=== PATIENT | male | born 1940 | race Caucasian/White ===

== ENCOUNTER 2016-08-11 05:38 | Inpatient (IN) | payer OTHER ==
[2016-07-28 10:16] LABS: % IMMATURE GRANULYOCYTES 0.1 % (0.0-1.1); ABSOLUTE IMMATURE GRANULOCYTES 0.01 10^3/uL (0.00-0.10); ADD DIFF? NO; ADD MORPH? NO; ADD SCAN? NO; ATYPICAL LYMPHOCYTE FLAG 0 (0-99); FRAGMENT RBC FLAG 0 (0-99); HEMATOCRIT 43.6 % (40.0-51.0); HEMOGLOBIN 15.1 g/dL (13.7-17.5); LEFT SHIFT FLG 0 (0-99); LIPEMIA HEMOLYSIS FLAG 90 (0-99); MEAN CELL HEMOGLOBIN 29.8 pg (27.9-34.1); MEAN CELL HEMOGLOBIN CONCENTR. 34.6 g/dL (32.4-36.7); MEAN CELL VOLUME 86.2 fL (81.5-99.8); MEAN PLATELET VOLUME 10.8 fL (8.7-11.7); PLATELET CLUMPS FLAG 0 (0-99); PLATELET COUNT 160 10^3/uL (150-400); RED BLOOD CELL COUNT 5.06 10^6/uL (4.40-6.38); RED CELL DISTRIBUTION WIDTH 12.5 % (11.5-15.2)
--- NOTE | 2016-08-02 12:03 | GHP ---
[f rep st] PREOP HISTORY AND PHYSICAL DATE OF ADMISSION: 08/11/2016 PROBLEM: Left knee arthritis. HISTORY OF PRESENT ILLNESS: The patient is a 76-year-old man admitted for a left total knee arthropl asty. He has had progressive degenerative arthritis in the left knee over the past couple of years. He had Supartz injections in 2014, which were quite helpful. He had them again in February 2016, and they did not work. His pain is increasing. He cannot walk without a lot of pain. He is using ibupr ofen every day. The knee is very stiff after prolonged sitting and when he awakens in the morning. He has been doing physical therapy without much benefit. He has failed nonsurgical treatment. He is admitted for a left total knee arthroplasty. PAST MEDICAL HISTORY: He is treated for hypothyroidism and elevated cholesterol. He had pneumonia i n 2010. No history of previous MRSA staph infections. No history of DVT, hepatitis or sleep apnea. CURRENT MEDICATIONS: Singulair 10 mg daily for allergic rhinitis. Zocor 20 mg daily. Synthroid 125 mcg per day. Ibuprofen daily. ALLERGIES: Penicillin caused a rash and diarrhea many years ago. Lorcet, Addison and Vicodin all caus ed dizziness and nausea. He is also allergic to doxycycline, shellfish and clindamycin. He thinks c lindamycin caused C diff. He states that aspirin upsets his stomach. He can tolerate ibuprofen. SOCIAL HISTORY: The patient is . He does not smoke cigarettes or drink alcohol. He is retir ed. FAMILY HISTORY: Positive for heart disease and cancer. PHYSICAL EXAMINATION: GENERAL: He is a tall, thin, healthy-appearing man. VITAL SIGNS: Height 6 f eet 1 inch. Weight 190 pounds. BMI 25.1. EYES: Conjunctivae and sclerae are clear. Pupils are ro und and reactive. MOUTH: Good oral hygiene. No loose teeth. CHEST: Clear. HEART: Regular rhyth m. No murmurs. EXTREMITIES: Pertinent findings limited to his left knee. He has a small effusion. He is tender along the medial joint line. His ligaments are stable. He lacks 5 degrees of full ex tension and flexes to 120 degrees. IMAGING: His films show advanced medial compartment degenerative arthritis. He is jooj-ck-gqqr in t he medial compartment. Peripheral osteophytes are present. He has mild varus alignment. IMPRESSION ON ADMISSION: 1. Left knee advanced medial compartment degenerative arthritis. 2. Treatment for hypothyroidism. 3. Treatment for elevated cholesterol. PLAN: He will undergo a left total knee arthroplasty. The surgery has been described to him, includ ing the risks, complications, expectations and recovery time. I have stressed the importance of post operative physical therapy. I have advised him that a small percentage of people do not get a good r esult with a total knee replacement. I am going to try to use a baby aspirin for DVT prophylaxis. I have asked him to take Pepcid or Taga met along with the aspirin. If he cannot tolerate that, I will have to switch him to Xarelto. He ca n tolerate oxycodone, which I use for postoperative pain control. All his questions have been answer ed, and he consents to surgery. /[id number]/MODL
[2016-08-11] MEDS ORDERED: ROPI/epiNEPH/KETOROLAC JOINT COCKTAIL IU ONE (06:00)
[2016-08-11] MEDS ORDERED: TRANEXAMIC ACID IV ONE (06:00)
[2016-08-11] MEDS ORDERED: FAMOTIDINE 20 MG TAB PO ONE (06:00)
[2016-08-11] MEDS ORDERED: POVIDONE-IODINE 20 ML in SODIUM CL IRRIG SOLUTION 500 ML IRR ONE (06:00)
[2016-08-11] MEDS ORDERED: CEFAZOLIN 2 GM/DEXTR 100 ML IV ONE (06:00)
[2016-08-11] MEDS ORDERED: NS IV ONE (06:00)
[2016-08-11] MEDS ORDERED: CHLORHEXIDINE GLUC HIBICLENS 118 ML BTL TP ONE (06:00)
[2016-08-11] MEDS ORDERED: ACETAMINOPHEN 325 MG TAB PO ONE (06:00)
[2016-08-11] MEDS ORDERED: DEXAMETHASONE 4 MG/ML VIAL IVP ONE (06:00)
[2016-08-11] MEDS ORDERED: SCOPOLAMINE HYDROBROMIDE 1.5 MG PATCH TD ONE (06:00)
[2016-08-11] MEDS ORDERED: LIDOCAINE 1% 5 ML SDV ONE (06:09)
[2016-08-11] MEDS ORDERED: LR 1,000 ML IV ONE (06:18)
[2016-08-11] MEDS ORDERED: LIDOCAINE 1% 5 ML SDV ID PRN (06:18)
[2016-08-11] MEDS ORDERED: ceFAZolin 1 GM/5 ML SYR ONE (06:50)
[2016-08-11] MEDS ORDERED: MIDAZOLAM 2 MG/2 ML VIAL ONE (06:59)
[2016-08-11] MEDS ORDERED: PROPOFOL/EMULSION 500 MG/50 ML BOTTLE IV ONE (07:08)
[2016-08-11] MEDS ORDERED: LIDOCAINE 2% 5 ML SDV ONE (07:52)
[2016-08-11] MEDS ORDERED: GLYCOPYRROLATE 0.2 MG/1 ML VIAL ONE ×2 (07:52)
[2016-08-11] MEDS ORDERED: ROPIVACAINE HCL 150 MG/30 ML INJ ONE (07:53)
--- NOTE | 2016-08-11 08:55 | POSTOPPROG ---
Post Op Note Date of Operation: 08/11/16 Surgeon: Abelardo Anderson Diesel Engine Mechanic Apprentice: Huang Anesthesiologist: Joya Anesthesia: IV Sedation, Spinal Post-op Diagnosis: left knee arthritis Procedure: L TKA Inf/Abcess present in the surg proc area at time of surgery?: No EBL: 50-100 (adductor canal block)
[2016-08-11] MEDS ORDERED: DIPHENOXYLATE/ATROPINE LOMOTIL 1 TAB PO PRN (09:06)
[2016-08-11] MEDS ORDERED: BISACODYL 10 MG SUPP PR PRN (09:06)
[2016-08-11] MEDS ORDERED: POLYETHYLENE GLYCOL 3350 17 GM PKT PO PRN (09:06)
[2016-08-11] MEDS ORDERED: TEMAZEPAM 15 MG CAP PO PRN (09:06)
[2016-08-11] MEDS ORDERED: METOCLOPRAMIDE 10 MG/2 ML VIAL IVP PRN (09:06)
[2016-08-11] MEDS ORDERED: ONDANSETRON 4 MG/2 ML VIAL IVP PRN (09:06)
[2016-08-11] MEDS ORDERED: NS 500 ML IV PRN (09:06)
[2016-08-11] MEDS ORDERED: KETOROLAC 30 MG/1 ML SDV IVP PRN (09:06)
[2016-08-11] MEDS ORDERED: PROMETHAZINE HCL 25 MG/ML INJ IVP PRN (09:06)
[2016-08-11] MEDS ORDERED: PROMETHAZINE HCL 25 MG SUPPR PR PRN (09:06)
[2016-08-11] MEDS ORDERED: MAGNESIUM HYDROXIDE 30 ML UDCUP PO PRN (09:06)
[2016-08-11] MEDS ORDERED: oxyCODONE IR 5 MG TAB PO PRN (09:06)
[2016-08-11] MEDS ORDERED: traMADol 50 MG TAB PO PRN (09:06)
[2016-08-11] MEDS ORDERED: ONDANSETRON DISINTEGRATING 4 MG TAB PO PRN (09:06)
[2016-08-11] MEDS ORDERED: diphenhydrAMINE 25 MG CAP PO PRN (09:06)
[2016-08-11] MEDS ORDERED: CYCLOBENZAPRINE 10 MG TAB PO PRN (09:06)
[2016-08-11] MEDS ORDERED: PHARMACY PAIN CONSULT 1 EA MISC PRN (09:06)
[2016-08-11] MEDS ORDERED: LACTULOSE 20 GM/30 ML UDCUP PO PRN (09:06)
[2016-08-11] MEDS ORDERED: LR 1,000 ML IV SCH (09:30)
[2016-08-11 09:53] VITALS: RESP 16
--- NOTE | 2016-08-11 10:02 | DX ---
Two Views Left Knee: Reason for examination: Postoperative followup. Findings: Postoperative changes of total left knee arthroplasty are noted. The bone alignment is sati sfactory and no complicating process is seen. Impression: Status post recent total left knee arthroplasty.
--- NOTE | 2016-08-11 11:27 | GOP ---
[f rep st] OPERATIVE REPORT DATE OF OPERATION: 08/11/2016 SURGEON: Abelardo Anderson MD SUPERVISOR SCENIC ARTS: Andrea Bolden, PAC and Dennis Nieves CFA. ANESTHESIA: Combination of Marcaine spinal, IV sedation, and adductor canal block. ANESTHESIOLOGIST: Columba Hinson MD PREOPERATIVE DIAGNOSIS: Left knee severe degenerative arthritis. POSTOPERATIVE DIAGNOSIS: Left knee severe degenerative arthritis. PROCEDURE PERFORMED: Left total knee arthroplasty, cemented, Davis and nephew Journey II, posterior stabilized. FINDINGS: DESCRIPTION OF PROCEDURE: The patient was given 2 g of IV Ancef preoperatively within 60 minutes of surgery. He also received IV tranexamic acid at a dose of 10 mg/kg. He was placed on the operating room table and given spinal anesthesia with Marcaine. He was then placed supine and given IV sedation. A Zavala catheter was not used. He wore a ANTHONY stocking and sequential compression device on the nonoperative leg. A bolster was placed under the left hip to prevent excessive external rotation of his leg. The left lower extremity was prepped with ChloraPrep from the upper thigh tourniquet to the tips of the toes. It was draped free using sterile sheets, stockinette, and Ioban plastic adhesive drape. The lower leg was wrapped with compressive Coban. The leg was exsanguinated with elevation and a 6-inch compressive wrap, and the pneumatic tourniquet was inflated to 250 mmHg. The World Health Organization time-out was performed to verify the correct patient identity and the correct surgical side. The [place] time-out was also performed. The [facility] leg holding device was sterilely attached to the operating room table and used throughout the procedure to help position the knee. A straight midline incision was made centered on the patella. Subcutaneous tissues were sharply divided, and hemostasis was obtained using electrocautery. A medial subcutaneous flap was developed, and the capsule and synovium were opened in a medial parapatellar fashion. Extensive degenerative changes were present in the medial and lateral compartments. His patellar articular surface was in a reasonably good condition. The medial capsule and periosteum were elevated off the rim of the medial tibial plateau all the way around to the posteromedial corner. His medial collateral ligament was released enough to balance the medial side of the knee. In order to improve exposure, his patella was prepared first. The original thickness of the patella was measured. Peripheral osteophytes were removed. I cut a flat surface on the back of the patella. He was sized for a 38 mm resurfacing component. I removed enough bone from the patella such that the remaining bone, plus the thickness of the patellar component, recreated the original thickness of the patella. The composite thickness was 25 mm. The intramedullary alignment guide system was used to set up the distal femoral cut. The distal femur was cut in 5 degrees of valgus. Because of a 15-20 degree preoperative flexion contracture, I made a +4 mm cut on the distal femur. The sizing jig was used to determine proper femoral sizing. He was a true size 8 without a shift. The 5-in-1 cutting block was applied, and the anterior and posterior condylar cuts and chamfer cuts were made. The final jig was used to remove the central portion of the distal femur to accommodate the posterior stabilized femoral component. I was careful to determine proper rotation by referencing off [place] line. Each cut was checked for accuracy before and after it was made. His femur was sized for a size 8 posterior stabilized component. Next, the tibia was prepared. The proximal tibial cut was made using the extramedullary alignment guide system. The cut was made in a few degrees of posterior slope. I was careful to achieve proper varus/valgus alignment and proper rotation. The posterior compartment was cleared of meniscal remnants. Osteophytes were removed from the back of the femoral condyles. I checked the flexion and extension gaps, and they were equal and balanced. The tibia was sized for a size 7 component. With the trial components in place , I selected a 9 mm polyethylene posterior stabilized tibial insert. The knee came to full extension, flexed to 125 degrees. There was no overstuffing in flexion. The collateral ligaments were stable and balanced in 90 degrees of flexion and full extension. The trial patellar button was applied, and patellar tracking was checked. Tracking was excellent without any digital pressure. 40 mL of the joint anesthetic cocktail were injected into the posterior capsule , the periarticular structures, the quadriceps muscle and tendon areas, and the subcutaneous tissues along the skin edges. A second dose of IV tranexamic acid was given at a dose of 10 mg/kg. The surfaces were prepared for cementing. They were carefully cleaned with the pulsating lavage irrigation and thoroughly dried. The CarboJet device was used to blow dry the cancellous surfaces. A double batch of methylmethacrylate cement with tobramycin was mixed. While it was still in a semiliquid state, all [address] components were cemented in place. Excess cement was removed before it hardened. The 9 mm trial tibial insert was re-tried and was the correct thickness. The actual component was inserted and locked into place. The knee was thoroughly irrigated 1 final time with a dilute Betadine solution. The tourniquet was deflated, and the total tourniquet time was 52 minutes. The vastus medialis portion of the extensor mechanism was repaired with several interrupted [id number] #2 FiberWire sutures. The capsule and synovium were closed first with multiple interrupted jlivdi-gi-[id number] 0 PDS sutures, followed by a running #2 barbed Ethicon Stratafix PDO suture. The subcutaneous tissues were closed with a running 0 barbed Ethicon Stratafix Monoderm suture. The skin was closed with a running 3-0 barbed Ethicon Stratafix Monoderm subcuticular suture. The skin was sealed with half-inch Steri-Strips. The wound was covered with Xeroform gauze and flat 4 x 4's, and the knee was wrapped with a Kerlix and 6-inch compressive wrap. A long-leg ANTHONY stocking and SCD were applied followed by the cooling device. The patient wore a stocking and SCD on the opposite leg during the procedure. I used a size 8 cemented Davis and Nephew Oxinium posterior stabilized femoral component, a size 7 cemented tibial base plate, a 9 mm posterior stabilized tibial insert, and a 38 mm cemented round all-polyethylene resurfacing patellar component. The estimated blood loss following deflation of the tourniquet was about 100 cc. The sponge and needle count were correct on 2 occasions. He was awakened from anesthesia, transferred to his hospital [facility] and taken to PACU in satisfactory condition. There were no recognized intraoperative complications. In the recovery room, for additional postoperative pain relief, Dr. Hinson administered an adductor canal block. Daniel Bolden and Dennis Nieves acted as surgical assistants. Their assistance was a medical necessity. /[id number]/MODL MTDD
[2016-08-11] MEDS: TRANEXAMIC ACID 650 MG TAB PO SCH ×3 (11:40→21:41)
[2016-08-11] MEDS: ACETAMINOPHEN 325 MG TAB PO SCH ×3 (11:40→21:44)
[2016-08-11] MEDS ORDERED: ceFAZolin 2 GM/DEXTROSE 100 ML IV SCH (14:00)
[2016-08-11] MEDS: ceFAZolin 2 GM in D5W 100 ML IV SCH ×2 (15:11→21:41)
[2016-08-11] MEDS: FAMOTIDINE 20 MG TAB PO SCH (19:56)
[2016-08-11] MEDS: SENNOSIDES/DOCUSATE SODIUM TAB PO SCH (19:56)
[2016-08-12] MEDS: ACETAMINOPHEN 325 MG TAB PO SCH ×2 (04:36→11:25)
[2016-08-12 05:25] LABS: HEMATOCRIT 37.8 % (40.0-51.0); HEMOGLOBIN 12.6 g/dL (13.7-17.5)
[2016-08-12] MEDS ORDERED: LEVOTHYROXINE 125 MCG TAB PO SCH (06:00)
--- NOTE | 2016-08-12 07:40 | SOAPPROG ---
SOAP Progress Note Assessment/Plan: Assessment: Afebrile. Awake and alert. Mild pain. Has been walking in room. H/H is good. Films look good. Plan: PT today. DC later today. 08/12/16 07:39 Objective: Vital Signs Temp Pulse Resp BP Pulse Ox 36.8 C 61 16 134/77 H 93 08/12/16 05:18 08/12/16 05:18 08/12/16 05:18 08/12/16 05:18 08/12/16 05:18 Laboratory Results 08/12/16 04:52 08/11/16 08/12/16 08/13/16 05:59 05:59 05:59 Intake Total 1825 Output Total 50 Balance 1775 ICD10 Worksheet Patient Problems: Problems Problem Status Diagnosed Primary osteoarthritis of left knee Acute
--- NOTE | 2016-08-12 07:44 | PDIAF ---
- Diagnosis Diagnosis: left knee arthritis Code Status: Full Code - Medication Management Discharge Medications: Medications to Continue on Transfer Levothyroxine [Synthroid 125 mcg (*)] 125 mcg PO DAILY06 07/15/16 [Last Taken 06:00] Montelukast Sodium [Singulair 10 mg (*)] 10 mg PO DAILY 07/15/16 [Last Taken 09:00] Simvastatin [Zocor] 20 mg PO DAILY 07/15/16 [Last Taken 08/09/16 09:00] Acetaminophen [Tylenol 325mg (*)] 650 mg PO Q6HRS #0 tab 08/12/16 [Last Taken Unknown] Ferrous Sulfate [Slow Fe 140 MG (*)] 140 mg PO DAILY #30 tab.er 08/12/16 [Last Taken Unknown] Ondansetron Odt [Zofran Odt 4 mg (*)] 4 mg PO Q4HRS PRN #0 tab 08/12/16 [Last Taken Unknown] oxyCODONE IR [Oxycodone Ir (*)] 5 - 10 mg PO Q3HRS PRN #0 tab 08/12/16 [Last Taken Unknown] traMADol [Ultram 50 mg (*)] 50 mg PO Q6HRS PRN #0 tab 08/12/16 [Last Taken Unknown] Discharge Medications: Refer to the Discharge Home Medication list for PRN reason. PICC Care - Routine: N/A - Orders Services needed: Home Care, Physical Therapy Home Care Face to Face: I certify that this patient was under my care and that I had the required [id number]-[id number] encounter meeting the encounter requirements on the discharge day. My findings support the fact that the patient is homebound as defined in CMS Chapter 7 Medicare Benefits Manual 30.1.1, The condition of the patient is such that there exists a normal inability to leave home and consequently, leaving home would require a considerable and taxing effort. Diet Recommendation: no restrictions on diet Diet Texture: Regular Texture Diet Zavala: Not applicable Thai Stockings Discontinue Date: 1 week Wound Care Instructions: keep clean and dry. You may shower. Activity/Weight Bearing Restrictions: as tolerated. Additional: Use Zero knee while in bed as much as possible x 2 weeks. - Follow Up Care Current Providers and Referrals: JULY ARCHER [Primary Care Provider] - Abelardo Anderson MD [Medical Doctor] - 08/26/16 10:45 am
[2016-08-12] MEDS: FAMOTIDINE 20 MG TAB PO SCH (08:47)
[2016-08-12] MEDS: SENNOSIDES/DOCUSATE SODIUM TAB PO SCH (08:48)
[2016-08-12] MEDS: TRANEXAMIC ACID 650 MG TAB PO SCH (08:48)
[2016-08-12] MEDS ORDERED: ATORVASTATIN CALCIUM 10 MG TAB PO SCH (09:00)
[2016-08-12] MEDS ORDERED: MONTELUKAST SODIUM 10 MG TAB PO SCH (09:00)
[2016-08-12] MEDS ORDERED: NON-FORMULARY NEW DRUG (Simvastatin [Zocor] 20 MG) PO SCH (09:00)
[2016-08-12] MEDS ORDERED: FERROUS SULFATE 140 MG TAB.ER PO SCH (09:00)
[2016-08-12] MEDS ORDERED: RIVAROXABAN 10 MG TAB PO SCH (09:00)
--- NOTE | 2016-08-12 09:06 | GDS ---
[f rep st] DISCHARGE SUMMARY ADMISSION DIAGNOSIS: Left knee severe degenerative arthritis. DISCHARGE DIAGNOSIS: Left knee severe degenerative arthritis. PROCEDURE PERFORMED: 08/11/2016, left total knee arthroplasty. POSTOPERATIVE COMPLICATIONS: None. CONDITION ON DISCHARGE: Improved. DESCRIPTION OF HOSPITAL COURSE: The patient was admitted to the hospital on the morning of surgery. His admission CBC was normal. The same day, under a combination of Marcaine spinal anesthesia, IV s edation, and adductor canal block, he underwent a left total knee arthroplasty. Postoperatively, he was treated with multimodal DVT prophylaxis including Xarelto. The patient does not tolerate aspirin and I used Xarelto as a substitute. On the 1st postoperative day, his hemoglobin and hematocrit wer e 12.6 and 37.8. He was seen by Physical Therapy and made good progress with ambulation, stairs and knee range of motion. By the time of discharge, he was afebrile and was independent in walking with a walker. DISPOSITION: The patient is discharged to his home. He may progress to full weightbearing on the le ft as tolerated. He will have home physical therapy. Continue Xarelto daily for 14 days. He will h ave home physical therapy for 2 weeks and then go to outpatient physical therapy after that. He has prescriptions for oxycodone for pain control. He may also use Tylenol. I will see him back in the [facility] on August 26, 2016. If there any problems, he is to call me at the office. Copy requested to: Dr. Lyndon Velasquez /[id number]/MODL
[2016-08-12 09:39] VITALS: BP 150/88; PULSE 57; TEMP 97.6; O2SAT 94
--- NOTE | 2016-08-12 09:54 | DX ---
Bone Length Study History: Evaluate left total knee arthroplasty. Findings: Postsurgical changes are seen of a left total knee arthroplasty. There is good alignment an d appearance. Mild degenerative change is seen in both hips. Degenerative change is seen in the lower lumbar spine. Multiple vascular clips are seen in the pelvis from prior surgery. Impression: Postsurgical changes of left total hip arthroplasty with good alignment and appearance.
== END 2016-08-12 12:49 | disposition home or self-care (01) | DRG 470 ==
LOC: F3N 05:38
PROVIDERS: ADMIT Orthopaedic Surgery; ATTEND Orthopaedic Surgery
PROC: 0SRD0J9 Replacement of Left Knee Joint with Synthetic Substitute, Cemented, Open Approach (ICD-10-PCS; principal; 2016-08-11 07:15)
DX: M17.12 Unilateral primary osteoarthritis, left knee (principal); E03.9 Hypothyroidism, unspecified; E78.00 Pure hypercholesterolemia, unspecified
CPT/HCPCS: 97110-GP; 97116-GP; 97161-GP; 97165-GO; C1713; G8978-GP-CJ; G8979-GP-CI; G8980-GP-CI; G8987-GO-CI; G8988-GO-CI; G8989-GO-CI; J0171; J0690; J1100; J1885; J2250; J2704; J2795

== ENCOUNTER 2016-08-13 17:58 | Observation (INO) | payer OTHER ==
[2016-08-13] MEDS ORDERED: NS 1,000 ML IV ONE (18:07)
--- NOTE | 2016-08-13 18:08 | EDPHY ---
HPI/HX/ROS/PE/MDM Narrative: CHIEF COMPLAINT: Diarrhea, syncope HPI: The patient is an anticoagulated 76 y/o male arriving via EMS complaining of worsening diarrhea following a recent left total knee arthroplasty two days ago. He developed loose stools while still in the hospital that developed into diarrhea since discharge home. His diarrhea is nonbloody and has worsened throughout the day and he has been unable to retain fluids. He does not have associated nausea, vomiting, abdominal pain, or fever. Today he had two syncopes just after having a bowel movement. He was assisted to the ground and denies injury from these episodes. He is currently on a prophylactic antibiotic and Xarelto as well as oxycodone for pain. He notes he has a history of c-diff, but that infection was associated with nausea and vomiting. REVIEW OF SYSTEMS: Aside from elements discussed in the HPI, a comprehensive 10-point review of systems was reviewed and is negative. PMH: Prostate cancer, C-diff, thyroidectomy, osteoarthritis, left total knee arthroplasty - Dr. Anderson 08/11/16 Prior medical records reviewed including operative note from 08/11/16. SOCIAL HISTORY: Daughter at bedside PHYSICAL EXAM: General:Patient is alert, in no acute distress. ENT:Eyes are normal to inspection. ENT inspection normal. Neck: Normal inspection. Full range of motion. Respiratory:No respiratory distress. Breath sounds normal bilaterally. Cardiovascular: Regular rate and rhythm. Strong peripheral pulses. Normal cap refill. Abdomen:The abdomen is nontender to palpation. There are no peritoneal signs. There are normal bowel sounds. Back: Normal to inspection. No tenderness to palpation. Skin: Normal color. No rash. Warm and dry. Extremities: Left surgical wound clean, dry, and intact. Other extremities: normal appearance and full range of motion. Neuro: Oriented x3. Normal motor function. Normal sensory function. ED Course: IV established. Labs drawn including CBC, CHEM, PTPTT, troponin. UA and stool sample requested. 1L IV NS administered. Patient placed on panel monitor. Chest x-ray ordered. The 12 lead EKG was interpreted by myself. See hard copy and/or "tracemaster" electronic copy for interpretation. Study: Chest x-ray Indication: Syncope Results: Chest x-ray was obtained. The results of the study are negative. The study was read by the radiologist, Dr. Rider. I viewed the images myself on the PACS system. MDM: This patient presents with diarrhea that seems to be causing significant volume depletion. Patient had 2 syncopal episodes at home today which are again likely secondary to volume depletion in the absence of any anemia, infectious symptoms or chest pain. The patient was rehydrated here in the emergency department but on re-evaluation at 8:30 p.m., he still feels too weak to perform his activities of daily living at home and feels that he would be unsafe if he went home because his is unable to help him up. He requests to be admitted to the hospital. I spoke to Dr. Raúl Mejia from the hospitalist service to admit him. Notified Dr. Robi Medrano who is covering for Dr. Anderson. - Data Points Laboratory Results: Laboratory Results 08/13/16 18:18 08/13/16 18:18 08/13/16 08/13/16 18:50 18:18 WBC 9.36 10^3/uL (3.80-9.50) RBC 4.54 10^6/uL (4.40-6.38) Hgb 13.4 L g/dL (13.7-17.5) Hct 38.4 L % (40.0-51.0) MCV 84.6 fL (81.5-99.8) MCH 29.5 pg (27.9-34.1) MCHC 34.9 g/dL (32.4-36.7) RDW 12.6 % (11.5-15.2) Plt Count 139 L 10^3/uL (150-400) MPV 10.6 fL (8.7-11.7) Neut % (Auto) 82.2 H % (39.3-74.2) Lymph % (Auto) 9.8 L % (15.0-45.0) Pike % (Auto) 6.7 % (4.5-13.0) Eos % (Auto) 0.5 L % (0.6-7.6) Baso % (Auto) 0.3 % (0.3-1.7) Nucleat RBC Rel Count 0.0 % (0.0-0.2) Absolute Neuts (auto) 7.68 H 10^3/uL (1.70-6.50) Absolute Lymphs (auto) 0.92 L 10^3/uL (1.00-3.00) Absolute Monos (auto) 0.63 10^3/uL (0.30-0.80) Absolute Eos (auto) 0.05 10^3/uL (0.03-0.40) Absolute Basos (auto) 0.03 10^3/uL (0.02-0.10) Absolute Nucleated RBC 0.00 10^3/uL (0-0.01) Immature Gran % 0.5 % (0.0-1.1) Immature Gran # 0.05 10^3/uL (0.00-0.10) PT 18.6 H SEC (12.0-15.0) INR 1.55 H (0.83-1.16) APTT 30.6 SEC (23.0-38.0) Sodium 136 mEq/L (134-144) Potassium 4.0 mEq/L (3.5-5.2) Chloride 103 mEq/L (97-110) Carbon Dioxide 27 mEq/l (22-31) Anion Gap 6 mEq/L (8-16) BUN 23 mg/dL (7-23) Creatinine 0.9 mg/dL (0.7-1.3) Estimated GFR > 60 Glucose 123 H mg/dL (70-100) Calcium 8.7 mg/dL (8.5-10.4) Troponin I < 0.012 ng/mL (0-0.034) Urine Color YELLOW Urine Appearance CLEAR Urine pH 6.0 (5.0-7.5) Ur Specific [place] 1.015 (1.002-1.030) Urine Protein NEGATIVE (NEGATIVE) Urine Ketones NEGATIVE (NEGATIVE) Urine Blood NEGATIVE (NEGATIVE) Urine Nitrate NEGATIVE (NEGATIVE) Urine Bilirubin NEGATIVE (NEGATIVE) Urine Urobilinogen NEGATIVE EU (0.2-1.0) Ur Leukocyte Esterase NEGATIVE (NEGATIVE) Ur Culture Indicated? NOT INDICATED (NI) Urine Glucose NEGATIVE (NEGATIVE) Medications Given: Discontinued Medications Sodium Chloride (Ns) 1,000 mls @ 0 mls/hr IV ONCE ONE PRN Reason: Wide Open Stop: 08/13/16 18:08 Last Admin: 08/13/16 18:30 Dose: 1,000 mls General Initial Vital Signs: Initial Vital Signs Temperature (C) 36.6 C 08/13/16 17:58 Heart Rate 87 08/13/16 17:58 Respiratory Rate 16 08/13/16 17:58 Blood Pressure 166/106 H 08/13/16 17:58 O2 Sat (%) 94 08/13/16 17:58 O2 Delivery Mode Room Air Allergies/Adverse Reactions: hydrocodone bitartrate [From Lorcet ] Allergy (Severe, Verified 08/13/16 18:03) Nausea/Vomiting Shellfish *RETIRED-03/27/12 [Shellfish] Allergy (Severe, Verified 08/13/16 18:03 ) Abdominal Cramping/Vomiting amoxicillin [Amoxicillin] Allergy (Mild, Verified 08/13/16 18:03) Rash/DIARRHEA doxycycline Allergy (Mild, Verified 08/13/16 18:03) Nausea Penicillins Allergy (Mild, Verified 08/13/16 18:03) Rash acetaminophen [From Lorcet (hydrocodone)] Allergy (Verified 08/13/16 18:16) aspirin Allergy (Verified 08/13/16 18:16) clindamycin Allergy (Verified 08/13/16 18:16) Home Medications: Medication Instructions Recorded Levothyroxine [Synthroid 125 mcg 125 mcg PO DAILY06 07/15/16 (*)] Montelukast Sodium [Singulair 10 10 mg PO DAILY 07/15/16 mg (*)] Simvastatin [Zocor] 20 mg PO DAILY 07/15/16 Acetaminophen [Tylenol 325mg (*)] 650 mg PO Q6HRS #0 tab 08/12/16 Ferrous Sulfate [Slow Fe 140 MG 140 mg PO DAILY #30 tab.er 08/12/16 (*)] Ondansetron Odt [Zofran Odt 4 mg 4 mg PO Q4HRS PRN #0 tab 08/12/16 (*)] oxyCODONE IR [Oxycodone Ir (*)] 5 - 10 mg PO Q3HRS PRN #0 tab 08/12/16 traMADol [Ultram 50 mg (*)] 50 mg PO Q6HRS PRN #0 tab 08/12/16 Xarelto 08/13/16 Departure - Departure Disposition: [facility] Inpatient Acute Clinical Impression: Dehydration, Status post knee replacement Diarrhea Qualifiers: Diarrhea type: unspecified type Qualifier Code: (R19.7) Diarrhea, unspecified Syncope Qualifiers: Syncope type: unspecified Qualifier Code: (R55) Syncope and collapse Condition: Good Instructions: Acute Diarrhea (ED) Additional Instructions: Fluids as tolerated. Follow up with your primary care provider as needed for symptoms not improved over the weekend. Referrals: JULY ARCHER [Primary Care Provider] - As per Instructions Report Scribed for: Randell Ames Report Scribed by: Ca Trujillo Date of Report: 08/13/16 Time of Report: 18:08 Physician Review and Approval Statement: Portions of this note were transcribed by an ED scribe. I personally performed the history, physical exam, and medical decision making; and confirm the accuracy of the information in the transcribed note.
--- NOTE | 2016-08-13 18:17 | CPEKG ---
Heart Rate: 86 RR Interval: 698 P-R Interval: 188 QRSD Interval: 112 QT Interval: 404 QTC Interval: 484 P Carleton: 61 QRS Carleton: -78 T Wave Carleton: 13 EKG Severity - ABNORMAL ECG - EKG Impression: SINUS RHYTHM EKG Impression: LEFT ANTERIOR FASCICULAR BLOCK Electronically Signed By: Randell Ames 13-Aug-2016 20:51:21
[2016-08-13 18:31] LABS: % IMMATURE GRANULYOCYTES 0.5 % (0.0-1.1); ABSOLUTE IMMATURE GRANULOCYTES 0.05 10^3/uL (0.00-0.10); ADD DIFF? NO; ADD MORPH? NO; ADD SCAN? NO; ATYPICAL LYMPHOCYTE FLAG 0 (0-99); FRAGMENT RBC FLAG 0 (0-99); HEMATOCRIT 38.4 % (40.0-51.0); HEMOGLOBIN 13.4 g/dL (13.7-17.5); LEFT SHIFT FLG 0 (0-99); LIPEMIA HEMOLYSIS FLAG 90 (0-99); MEAN CELL HEMOGLOBIN 29.5 pg (27.9-34.1); MEAN CELL HEMOGLOBIN CONCENTR. 34.9 g/dL (32.4-36.7); MEAN CELL VOLUME 84.6 fL (81.5-99.8); MEAN PLATELET VOLUME 10.6 fL (8.7-11.7); PLATELET CLUMPS FLAG 0 (0-99); PLATELET COUNT 139 10^3/uL (150-400); RED BLOOD CELL COUNT 4.54 10^6/uL (4.40-6.38); RED CELL DISTRIBUTION WIDTH 12.6 % (11.5-15.2)
[2016-08-13 18:45] LABS: INR 1.55 (0.83-1.16); PROTIME(PATIENT) 18.6 SEC (12.0-15.0)
[2016-08-13 18:46] LABS: APTT 30.6 SEC (23.0-38.0)
--- NOTE | 2016-08-13 18:47 | DX ---
Chest, AP and Lateral History: Patient passed out x2 today, dehydration, not feeling well, post knee surgery Comparison: February 28, 2012 and June 09, 2011 Findings: Lungs are clear, without infiltrate or consolidation. There is a prominent stable left vent ricular contour is consistent with left ventricular hypertrophy. The pulmonary vascularity is normal. There is no adenopathy or pleural effusion. Incidentally noted is an azygos lobe. EKG leads overlie the chest. Multiple surgical clips are present in the low right cervical region and at the thoracic i nlet. There is degenerative spurring in the lower thoracic spine suggestive of DISH. Impression: Nothing acute identified.
[2016-08-13 18:49] LABS: ANION GAP 6 mEq/L (8-16); CALCIUM 8.7 mg/dL (8.5-10.4); CARBON DIOXIDE 27 mEq/l (22-31); CHLORIDE 103 mEq/L (97-110); CREATININE 0.9 mg/dL (0.7-1.3); GLOMERULAR FILTRATION RATE > 60; GLUCOSE 123 mg/dL (70-100); SODIUM 136 mEq/L (134-144)
[2016-08-13 19:01] LABS: TROPONIN I < 0.012 ng/mL (0-0.034)
[2016-08-13 19:03] LABS: COLOR YELLOW; LEUKOCYTE ESTERASE,URINE NEGATIVE (NEGATIVE); NITRITE,URINE NEGATIVE (NEGATIVE)
[2016-08-13] MEDS ORDERED: ONDANSETRON DISINTEGRATING 4 MG TAB PO PRN (22:05)
[2016-08-13] MEDS ORDERED: ONDANSETRON 4 MG/2 ML VIAL IVP PRN (22:05)
--- NOTE | 2016-08-13 22:42 | GHP ---
[f rep st] HISTORY AND PHYSICAL DATE OF ADMISSION: 08/13/2016 CHIEF COMPLAINT: Diarrhea. HISTORY OF PRESENT ILLNESS: This is a 76-year-old male with no significant past medical history othe r than getting knee replacement surgery a couple days ago. He was discharged yesterday and then deve loped diarrhea yesterday. Today, he had diarrhea all day long and had a syncopal type episode. He i s feeling dizzy whenever he stands up. He feels queasy but no vomiting. No fevers. No abdominal pa in. He lives with his 75-year-old and is unable to care for himself at this point with his dizz iness. REVIEW OF SYSTEMS: A 10-point review of systems was obtained and other than stated above was negativ e. PAST MEDICAL HISTORY: 1. Recent left knee replacement. 2. Prostate cancer. 3. History of thyroidectomy. 4. Previous history of C difficile. SOCIAL HISTORY: No smoking or alcohol. . Daughter lives in town as well. FAMILY HISTORY: Reviewed and noncontributory. PHYSICAL EXAM: VITAL SIGNS: Afebrile, blood pressure is 148/75, heart rate 84, oxygen saturation 93 % on room air. GENERAL: Patient is well developed, in no apparent distress. HEENT: Nonicteric scl erae. Extraocular movement intact. Moist mucous membranes. NECK: Supple. No thyromegaly. LUNGS: Good effort. Clear to auscultation bilaterally. CARDIOVASCULAR: Regular rate and rhythm. No mur murs or gallops. ABDOMEN: Positive bowel sounds. Soft, nontender, nondistended. No hepatosplenome chavez. EXTREMITIES: No clubbing, cyanosis, or edema. SKIN: Without rash. Warm, dry, intact. NEUR OLOGIC: Alert and oriented x3. Moving all 4 extremities equally. PSYCH: Normal mood and affect. LABS: CBC is essentially normal. INR is elevated but he is on Xarelto. Chemistries normal. UA is negative. ASSESSMENT: A 76-year-old male presenting with diarrhea, post knee replacement. PLAN: 1. Patient will be admitted under observation status. Give IV fluids. We will check a C difficile. We will see how he feels in the morning. 2. DVT prophylaxis. Continue Xarelto. /[id number]/MODL
[2016-08-14] MEDS: NS 1,000 ML IV SCH ×2 (00:35→07:59)
[2016-08-14] MEDS: LEVOTHYROXINE 125 MCG TAB PO SCH (07:07)
[2016-08-14] MEDS: ATORVASTATIN CALCIUM 10 MG TAB PO SCH (07:58)
[2016-08-14] MEDS: RIVAROXABAN 10 MG TAB PO SCH (07:58)
[2016-08-14] MEDS: MONTELUKAST SODIUM 10 MG TAB PO SCH (07:59)
[2016-08-14] MEDS ORDERED: NON-FORMULARY NEW DRUG (Simvastatin [Zocor] 20 MG) PO SCH (09:00)
[2016-08-14] MEDS: FERROUS SULFATE 140 MG TAB.ER PO SCH (10:44)
[2016-08-14] MEDS: oxyCODONE IR 5 MG TAB PO PRN (11:16)
--- NOTE | 2016-08-14 12:26 | ECHO ---
[id number] + + [address] : : [place] [address] : : [phone] + + Adult Echocardiographic Report + --------+ :Name: LEANN AGUIRRE KStudy Date: 08/14/2016 10:49 AM : : Hospital Admission Number: [id number] Locat ion: 221: :: 1940 Gender: Male Height: 73 in : :Age: 76 yrs Race: WH Weight: 185 l b : :Reason For Study: recurrent syncope, murmur : : BSA: 2.1 mete rs2 : :History: No previous : + --------+ MMode/2D Measurements & Calculations IVSd: 1.4 cm RVDd: 2.8 cm FS: 42.7 % LVOT diam: 2.0 cm LVPWd: 1.0 cm LVIDd: 4.5 cm EDV(Teich): LVOT area: LVIDs: 2.6 cm 90.3 ml 3.3 cm2 ESV(Teich): 23.6 ml EF(Teich): 73.9 % LVLd ap4: 7.4 cm SV(MOD-sp4): EDV(MOD-sp4): 66.0 ml 101.0 ml LVLs ap4: 6.3 cm ESV(MOD-sp4): 35.0 ml EF(MOD-sp4): 65.3 % Normal Measurement Values: + + :LVIDd (3.5-5.7cm) IVSd (0.6-1.1cm) LVPWd (0.6-1.1cm) Aortic Root (2.0-3.7cm)Left Atrium (1.5-4.0cm): :LV Vol(d) (76-115ml) LV Vol(s) (29-48ml) Ejec Fraction (50-65%)PV Venkata (0.6- 1.2m/s) TV Venkata (0.4-1.0m/s) : :MV E Venkata (0.8-1.0m/s)MV A Venkata (0.3-1.0m/s)LVOT Venkata (0.7-1.2m/s) Asc Ao Venkata ( 0.9-1.8m/s) : + + Doppler Measurements & Calculations MV E max venkata: MV V2 max: Ao V2 max: LV V1 mean P.7 cm/sec 92.3 cm/sec 126.7 cm/sec 0.98 mmHg MV A max venkata: MV max PG: Ao max P.4 mmHgLV V1 mean: 64.2 cm/sec 3.4 mmHg Ao mean P.1 cm/sec MV E/A: 0.71 MV V2 mean: 1.9 mmHg LV V1 VTI: 13.5 cm MV dec time: 62.8 cm/sec Ao V2 mean: 0.15 sec MV mean P.9 cm/sec 1.7 mmHg Ao V2 VTI: 17.0 cm MV V2 VTI: 16.4 cmAVA(I,D): 2.6 cm2 MVA(VTI): 2.7 cm2 SV(LVOT): 44.6 ml PA V2 max: TR max venkata: 99.2 cm/sec 236.2 cm/sec PA max PG: TR max P.0 mmHg 22.3 mmHg RAP systole: 10.0 mmHg RVSP(TR): 32.3 mmHg Left Ventricle The left ventricle is normal in size. There is normal left ventricular wall thickness. Ejection Fraction = 60-65%. There is Doppler evidence for diastolic dysfunction. Right Ventricle The right ventricle is mildly dilated. Atria The left atrial size is normal. Right atrial size is normal. Mitral Valve The mitral valve is normal in structure and function. There is no mitral valve stenosis. There is trace mitral regurgitation. Tricuspid Valve The tricuspid valve is normal in structure and function. There is no tricuspid stenosis. There is trace to mild tricuspid regurgitation. Right ventricular systolic pressure is normal. Aortic Valve The aortic valve is not well visualized. There is no aortic stenosis. There is no aortic insufficiency. Pulmonic Valve The pulmonic valve is not well visualized. There is no pulmonic valvular stenosis. Trace pulmonic valvular regurgitation. Great Vessels The aortic root is normal size. Pericardium/Pleural There is no pericardial effusion. There is a fat pad seen. Conclusion A complete two-dimensional transthoracic echocardiogram was performed (2D, M-mode, Doppler and color flow Doppler). The study was technically difficult. Patient supine for duration of exam due to recent knee surgery. 1. This is a technically limite study. 2. The left ventricle is normal in size. The Ejection Fraction = 60-65%. 3. The right ventricle is mildly dilated. 4. The mitral valve is normal in structure and function. There is trace mitral regurgitation. 5. The aortic valve is not well visualized. There is no aortic stenosis. There is no aortic insufficiency. 6. Right ventricular systolic pressure is normal. 7. No old studies for comparison. Final Reading Physician: Yandel He MD electronically signed on 08/14/2016 12:25 PM Ordering Physician: Bebe Vegas Performed By: Maida Camacho
[2016-08-14] MEDS: ACETAMINOPHEN 325 MG TAB PO PRN ×3 (14:12→23:10)
--- NOTE | 2016-08-14 14:28 | HOSPPROG ---
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 On exam patient with systolic murmur that he does not have memory of being told he has in the past, echo obtained for further eval. No significant valvular disease noted on echo and EF wnl. Suspect syncope all related to orthostasis in setting of diarrhea. # diarrhea: with 3-4 bouts of large volume soft bm x 3 days as well as poor po intake. In post op setting and following receiving bowel protocol post operatively. C diff negative and BM has been slowing down. Suspect either related to bowel meds versus viral gastroenteritis. Continue conservative mgmt. # recent knee replacement: pt/ot pain mgmt # dvt ppx: continue xarelto # dispo: observation, will monitor today, if diarrhea continues to decrease and patient ambulating safely may be able to dc later this afternoon versus tomorrow Patient new to my care. Old records reviewed and summarized as above. Subjective: no significant overnight events, patient has not walked much but wasn't dizzy when he went to bathroom, one more bout of diarrhea only this morning Objective: Vital Signs Temp Pulse Resp BP Pulse Ox 37.2 C 88 20 165/90 H 90 L 08/14/16 07:21 08/14/16 07:21 08/14/16 07:21 08/14/16 07:21 08/14/16 07:21 08/13/16 08/14/16 08/15/16 05:59 05:59 05:59 Intake Total 1300 Output Total 700 Balance 600 PT 18.6 SEC (12.0-15.0) H 08/13/16 18:18 INR 1.55 (0.83-1.16) H 08/13/16 18:18 awake alert nad anicteric op clear rrr no mrg cta b soft nt nd no cce warm dry well perfused oriented appropriate - Time Spent With Patient Time Spent with Patient: greater than 35 minutes Time Spent with Patient: Greater than 35 minutes spent on this patients care, greater than 50% of time spent counseling, educating, and coordinating care regarding the above mentioned plan. ICD10 Worksheet Patient Problems: Problems Problem Status Diagnosed Dehydration Acute Diarrhea Acute Status post knee replacement Acute Syncope Acute Primary osteoarthritis of left knee Acute
[2016-08-15 05:03] VITALS: O2SAT 91
[2016-08-15] MEDS: LEVOTHYROXINE 125 MCG TAB PO SCH (06:15)
[2016-08-15 08:08] VITALS: BP 158/98; PULSE 84; RESP 17; TEMP 97.6
[2016-08-15] MEDS: oxyCODONE IR 5 MG TAB PO PRN (08:50)
[2016-08-15] MEDS: MONTELUKAST SODIUM 10 MG TAB PO SCH (08:50)
[2016-08-15] MEDS: RIVAROXABAN 10 MG TAB PO SCH (08:50)
[2016-08-15] MEDS: ATORVASTATIN CALCIUM 10 MG TAB PO SCH (08:50)
[2016-08-15] MEDS: FERROUS SULFATE 140 MG TAB.ER PO SCH (08:51)
--- NOTE | 2016-08-15 09:55 | PDIAF ---
- Diagnosis Code Status: Full Code - Medication Management Discharge Medications: Medications to Continue on Transfer Levothyroxine [Synthroid 125 mcg (*)] 125 mcg PO DAILY06 07/15/16 [Last Taken ] Montelukast Sodium [Singulair 10 mg (*)] 10 mg PO DAILY 07/15/16 [Last Taken ] Simvastatin [Zocor] 20 mg PO DAILY 07/15/16 [Last Taken 08/13/16] Acetaminophen [Tylenol 325mg (*)] 650 mg PO Q6HRS #0 tab 08/12/16 [Last Taken ] Ferrous Sulfate [Slow Fe 140 MG (*)] 140 mg PO DAILY #30 tab.er 08/12/16 [Last Taken Unknown] Rivaroxaban [Xarelto 10mg (*)] 10 mg PO DAILY 08/13/16 [Last Taken 08/13/16] oxyCODONE IR [Oxycodone Ir (*)] 5 mg PO HS PRN 08/13/16 [Last Taken 08/13/16 05: 00 10mg] Acetaminophen [Tylenol 325mg (*)] 650 mg PO Q4HRS PRN #0 tab 08/15/16 [Last Taken Unknown] Discharge Medications: Refer to the Discharge Home Medication list for PRN reason. - Orders Services needed: Home Care, Physical Therapy Home Care Face to Face: I certify that this patient was under my care and that I had the required [id number] encounter meeting the encounter requirements on the discharge day. My findings support the fact that the patient is homebound as defined in CMS Chapter 7 Medicare Benefits Manual 30.1.1, The condition of the patient is such that there exists a normal inability to leave home and consequently, leaving home would require a considerable and taxing effort. Diet Recommendation: no restrictions on diet - Follow Up Care Current Providers and Referrals: JULY ARCHER [Primary Care Provider] - As per Instructions
--- NOTE | 2016-08-15 09:55 | PDDCSUM ---
Discharge Summary Discharge Summary: Dates of service: 08/13-08/15/16 Consultations and procedures: none History: 76 yo M with no significant PMH presenting s/p TKA with syncope in the setting of several days of diarrhea Hospital course by problem: # syncope: insetting of several days of diarrhea, no events on tele, echo essentially normal. No recurrences. # diarrhea: resolved since admission, likely viral gastroenteritis, c diff negative # recent knee replacement: pt/ot pain mgmt # dvt ppx: continue xarelto # dispo: dc home with continued home health F/u with PCP Meds: see EHR > 35 minutes spent in care of this patient more than half in face to face counseling of patient regarding follow up care plans
== END 2016-08-15 11:30 | disposition home health service (06) ==
LOC: EDUNIT# → F2W 08-14 00:23
PROVIDERS: ADMIT Internal Medicine; ATTEND Internal Medicine
PROC: B246YZZ Ultrasonography of Right and Left Heart using Other Contrast (ICD-10-PCS; principal; 2016-08-13)
DX: R55 Syncope and collapse (principal); R19.7 Diarrhea, unspecified; E86.0 Dehydration; Z98.890 Other specified postprocedural states; Z96.652 Presence of left artificial knee joint; Z79.01 Long term (current) use of anticoagulants; Z86.19 Personal history of other infectious and parasitic diseases; Z85.46 Personal history of malignant neoplasm of prostate
CPT/HCPCS: 71020; 93005; 93306; 97161; 97165; G0378; G8978; G8979; G8987; G8988; G8989

== ENCOUNTER 2018-07-26 17:34 | Emergency (ER) | payer OTHER ==
--- NOTE | 2018-07-26 18:05 | EDPHY ---
H & P Stated Complaint: DVT Time Seen by Provider: 07/26/18 17:42 HPI/ROS: CHIEF COMPLAINT: Right leg pain and swelling HISTORY OF PRESENT ILLNESS: The patient presents the ED with a one-week history of right leg pain and swelling. The patient does report some immobility over the past several weeks. The patient does have a remote history of a DVT. The patient denies any chest pain or shortness of breath. The patient contacted his primary care provider who evaluated him and sent him for an outpatient ultrasound which demonstrated a extensive DVT throughout the right lower extremity. The patient has no complaints of leg pain. He has no complaints of acute paresthesias. He denies additional acute symptoms. REVIEW OF SYSTEMS: A comprehensive 10 point review of systems is otherwise negative aside from elements mentioned in the history of present illness. Source: Patient Exam Limitations: No limitations - Personal History Current Tetanus Diphtheria and Acellular Pertussis (TDAP): Yes Tetanus Vaccine Date: 2009 - Medical/Surgical History Hx Asthma: No Hx Chronic Respiratory Disease: No Hx Diabetes: No Hx Cardiac Disease: No Hx Renal Disease: No Hx Cirrhosis: No Hx Alcoholism: No Hx HIV/AIDS: No Hx Splenectomy or Spleen Trauma: No Other PMH: prostate cancer, hernia surgery, gall bladder out, cdiff (2012), thyroidectomy, L KNEE REPLACMENTY - Social History Smoking Status: Never smoked - Physical Exam Exam: General Appearance: Alert, no distress Eyes: Pupils equal and round no pallor or injection ENT, Mouth: Mucous membranes moist Respiratory: There are no retractions, lungs are clear to auscultation Cardiovascular: Regular rate and rhythm Gastrointestinal: Abdomen is soft and nontender, no masses, bowel sounds normal Neurological: Normal motor sensory exam noted in the right lower extremity Skin: Warm and dry, no rashes Musculoskeletal: Neck is supple nontender Extremities: Asymmetric calf tenderness and swelling noted right leg, 2+ dorsalis pedis and posterior tibial pulses Constitutional: Initial Vital Signs Temperature (C) 36.6 C 07/26/18 17:38 Heart Rate 57 L 07/26/18 17:38 Respiratory Rate 18 07/26/18 17:38 Blood Pressure 148/76 H 07/26/18 17:38 O2 Sat (%) 95 07/26/18 17:38 O2 Delivery Mode Room Air Allergies/Adverse Reactions: hydrocodone bitartrate [From Lorcet ] Allergy (Severe, Verified 07/26/18 17:37) Nausea/Vomiting Shellfish *RETIRED-03/27/12 [Shellfish] Allergy (Severe, Verified 07/26/18 17:37 ) Abdominal Cramping/Vomiting amoxicillin [Amoxicillin] Allergy (Mild, Verified 07/26/18 17:37) Rash/DIARRHEA doxycycline Allergy (Mild, Verified 07/26/18 17:37) Nausea Penicillins Allergy (Mild, Verified 07/26/18 17:37) Rash acetaminophen [From Lorcet (hydrocodone)] Allergy (Verified 07/26/18 17:37) aspirin Allergy (Verified 07/26/18 17:37) clindamycin Allergy (Verified 07/26/18 17:37) shellfish Allergy (Severe, Uncoded 07/26/18 17:37) Other-Enter Comments Home Medications: Medication Instructions Recorded Levothyroxine [Synthroid 125 mcg 125 mcg PO DAILY06 07/15/16 (*)] Simvastatin [Zocor] 20 mg PO DAILY 07/15/16 Rivaroxaban [Xarelto 15mg (*)] 15 mg PO BID #41 tab 07/26/18 Medical Decision Making - Diagnostics Imaging Results: Imaging Impressions Extremity Venous Study 07/26/18 15:56 Impression: 1. Extensive DVT from the right common femoral vein through the calf. 2. Superficial thrombus also seen involving the greater saphenous vein. Findings discussed with Joon Suresh M.D. at 17:26 hour, 07/26/2018. ED Course/Re-evaluation: The patient presents the emergency department with a DVT involving the right lower extremity. He has no evidence of vascular compromise. He is neurologically intact. He has no evidence of acute pain right compartment syndrome. The patient has no complaints of chest pain or shortness of breath. I discussed with the patient treatment options including Lovenox Coumadin verses a novel anticoagulant. The patient does prefer a novel anticoagulant. I have informed him of the risks regarding difficulty reversing this medication. I did verify a normal creatinine. The patient will be started on Xarelto in the emergency department. The patient will be given a prescription for 15 mg of Xarelto twice a day for the next 21 days. I have informed the patient that he will need to be started on 20 mg daily thereafter. He will arrange that through his primary care provider Dr. Velasquez. Differential Diagnosis: Differential diagnosis considered includes DVT, extremity ischemia, pulmonary embolism - Data Points Laboratory Results: 07/26/18 18:12 POC Hgb 13.3 gm/dL L gm/dL (13.7-17.5) POC Hct 39 % L % (40-51) POC Sodium 143 mEq/L mEq/L (135-145) POC Potassium 3.9 mEq/L mEq/L (3.3-5.0) POC Chloride 105 mEq/L mEq/L (97-110) POC BUN 21 mg/dL mg/dL (7-23) POC Creatinine 1.3 mg/dL mg/dL (0.7-1.3) POC Glucose 84 mg/dL mg/dL (70-100) Point of Care Test Results: Chemistry 07/26/18 18:12 POC Sodium 143 mEq/L mEq/L (135-145) POC Potassium 3.9 mEq/L mEq/L (3.3-5.0) POC Chloride 105 mEq/L mEq/L (97-110) POC BUN 21 mg/dL mg/dL (7-23) POC Creatinine 1.3 mg/dL mg/dL (0.7-1.3) POC Glucose 84 mg/dL mg/dL (70-100) ISTAT H&H 07/26/18 18:12 POC Hgb 13.3 gm/dL L gm/dL (13.7-17.5) POC Hct 39 % L % (40-51) Departure - Departure Disposition: Home, Routine, Self-Care Clinical Impression: DVT (deep venous thrombosis) Qualifiers: DVT location: lower extremity Chronicity: acute Laterality: right Condition: Good Instructions: Deep Vein Thrombosis (ED) Additional Instructions: 1. You will need to take Xarelto 15 mg twice daily for 21 days. Thereafter you will need to be switched to 20 mg once a day. You have been given a prescription for the 1st [address] Velasquez. 2. Return to the ED for any chest pain or shortness of breath. Referrals: JULY VELASQUEZ [Primary Care Provider] - As per Instructions Prescriptions: Rivaroxaban [Xarelto 15mg (*)] 15 mg PO BID #41 tab
[2018-07-26] MEDS ORDERED: RIVAROXABAN 15 MG TAB PO ONE (18:24)
[2018-07-26 18:41] VITALS: BP 150/78
== END 2018-07-26 18:41 | disposition home or self-care (01) ==
DX: I82.411 Acute embolism and thrombosis of right femoral vein (principal); I82.811 Embolism and thrombosis of superficial veins of right lower extremity
CPT/HCPCS: 82435-PO; 82565-PO; 82947-PO; 84132-PO; 84295-PO; 84520-PO; 85014-ER

== ENCOUNTER → 2018-07-27 | Outpatient (CLI) | payer OTHER ==
[~2018-07-27] MED LIST: IOPAMIDOL (ISOVUE 370) 100 ML BTL IV ONE
== END ==
LOC: FIMAGING 11:31
PROVIDERS: ATTEND Family Medicine
DX: J98.11 Atelectasis (principal); I25.83 Coronary atherosclerosis due to lipid rich plaque; Z86.718 Personal history of other venous thrombosis and embolism
CPT/HCPCS: 71275; Q9967